=== PATIENT | female | born 1985 | race Caucasian/White ===

== ENCOUNTER 2018-01-26 04:36 | Inpatient (IN) | payer MEDICAID ==
[~2018-01-26] VITALS: Ht 160 cm; Wt 74.6 kg
[2018-01-26 04:40] VITALS: Ht 160 cm; Wt 74.6 kg
[2018-01-26 07:01] LABS: CALCIUM 8.3 mg/dL (8.5-10.1); CARBON DIOXIDE 23.8 mmol/L (21-32); CHLORIDE SERUM 112 mmol/L (98-107); CREATININE SERUM 0.7 mg/dL (0.6-1.0); GFR1 > 60 mL/min; GLUCOSE SERUM 123 mg/dL (74-106); SODIUM SERUM 145 mmol/L (136-145)
[2018-01-26 07:03] LABS: BASOPHIL % 0.2 % (0-2); PLATELET COUNT 266 x10^3mcL (130-400); RED CELL DISTRIBUTION WIDTH 12.8 % (11.5-14.5)
[2018-01-26 07:09] LABS: ALBUMIN 3.4 g/dL (3.4-5.0); ALKALINE PHOSPHATASE 69 U/L (46-116); ALT/SGPT 25 U/L (14-59); AST/SGOT 15 U/L (15-37); BILIRUBIN TOTAL 0.26 mg/dL (0.20-1.00); FREE T4 1.16 ng/dL (0.76-1.46); TOTAL PROTEIN, SERUM 7.3 g/dL (6.4-8.2)
[2018-01-26 07:34] LABS: UA SPECIFIC GRAVITY 1.025 (1.005-1.035); microscopic required? YES; urine erythrocyte 1+ (NEGATIVE)
[2018-01-26 09:17] VITALS: BP 96/61
[2018-01-26 09:25] VITALS: BP 96/61
[2018-01-26 12:39] VITALS: BP 102/58
[2018-01-26 13:40] LABS: AMPHETAMINE QUAL UR NONE DETECTED (NEG <=1000)
[2018-01-26 14:01] LABS: MAGNESIUM 2.1 mg/dL (1.8-2.4); PHOSPHOROUS 2.7 mg/dL (2.5-4.9)
[2018-01-26 17:07] VITALS: BP 104/64
[2018-01-26 20:56] VITALS: BP 99/52
[2018-01-27 05:46] VITALS: BP 99/47
[2018-01-27 07:47] LABS: CALCIUM 8.4 mg/dL (8.5-10.1); CARBON DIOXIDE 23.8 mmol/L (21-32); CHLORIDE SERUM 112 mmol/L (98-107); CREATININE SERUM 0.6 mg/dL (0.6-1.0); GFR1 > 60 mL/min; GLUCOSE SERUM 102 mg/dL (74-106); PHOSPHOROUS 3.4 mg/dL (2.5-4.9); POTASSIUM SERUM 4.3 mmol/L (3.5-5.1); SODIUM SERUM 145 mmol/L (136-145)
[2018-01-27 08:08] LABS: BASOPHIL % 0.3 % (0-2); PLATELET COUNT 249 x10^3mcL (130-400)
[2018-01-27 10:10] VITALS: BP 103/66
[2018-01-27] MEDS ORDERED: AMITRIPTYLINE H10 MG PO (13:10)
[2018-01-27] MEDS ORDERED: MAC100 PO (13:40)
[2018-01-27 13:57] VITALS: BP 100/55
[2018-01-27] MEDS ORDERED: BD LACTINEX1.4 MG PO (14:04)
[2018-01-27 14:35] VITALS: BP 100/55
== END 2018-01-27 15:04 | disposition home or self-care (01) | DRG 48 ==
LOC: ED 04:36 → DU 07:42
PROVIDERS: Emergency Medicine; Student in an Organized Health Care Education/Training Program
DX: G90.8 Other disorders of autonomic nervous system (principal); E87.8 Other disorders of electrolyte and fluid balance, not elsewhere classified; G43.909 Migraine, unspecified, not intractable, without status migrainosus; N39.0 Urinary tract infection, site not specified; Z83.3 Family history of diabetes mellitus; E78.5 Hyperlipidemia, unspecified
CPT/HCPCS: 83880; 84439; J0696; J1885; J2270; J2765; J7030; Q0092

== ENCOUNTER 2018-08-28 21:54 | Emergency (ER) | payer SELFPAY ==
[~2018-08-28] VITALS: Ht 160 cm; Wt 76.2 kg
[~2018-08-28 21:54] MED LIST: AMITRIPTYLINE H10 MG PO; BD LACTINEX1.4 MG PO; MAC100 PO
[2018-08-28 21:58] VITALS: Ht 160 cm; Wt 76.2 kg
[2018-08-28 23:05] LABS: CALCIUM 8.7 mg/dL (8.5-10.1); CARBON DIOXIDE 27.1 mmol/L (21-32); CHLORIDE SERUM 105 mmol/L (98-107); CREATININE SERUM 0.7 mg/dL (0.6-1.0); GFR1 > 60 mL/min; GLUCOSE SERUM 121 mg/dL (74-106); POTASSIUM SERUM 3.9 mmol/L (3.5-5.1); SODIUM SERUM 137 mmol/L (136-145)
[2018-08-28 23:10] LABS: ALBUMIN 3.7 g/dL (3.4-5.0); ALKALINE PHOSPHATASE 85 U/L (46-116); ALT/SGPT 28 U/L (14-59); AST/SGOT 17 U/L (15-37); BILIRUBIN TOTAL 0.4 mg/dL (0.20-1.00); TOTAL PROTEIN, SERUM 7.8 g/dL (6.4-8.2)
[2018-08-28 23:22] LABS: BASOPHIL % 0.6 % (0-2); PLATELET COUNT 300 x10^3mcL (130-400); RED CELL DISTRIBUTION WIDTH 13.9 % (11.5-14.5)
[2018-08-29 00:27] VITALS: BP 101/64
== END 2018-08-29 00:28 | disposition home or self-care (01) ==
LOC: ED 21:54
PROVIDERS: Emergency Medicine
DX: M79.18 Myalgia, other site (principal); N39.0 Urinary tract infection, site not specified; G43.909 Migraine, unspecified, not intractable, without status migrainosus
CPT/HCPCS: J1885; Q0162

== ENCOUNTER 2020-09-08 23:48 | Emergency (ER) | payer MEDICAID ==
[~2020-09-08] VITALS: Ht 160 cm; Wt 76.5 kg
[2020-09-09 01:40] LABS: CALCIUM 8.6 mg/dL (8.5-10.1); CARBON DIOXIDE 27.4 mmol/L (21-32); CHLORIDE SERUM 102 mmol/L (98-107); CREATININE SERUM 0.8 mg/dL (0.6-1.0); GFR1 > 60 mL/min; GLUCOSE SERUM 123 mg/dL (74-106); POTASSIUM SERUM 4.2 mmol/L (3.5-5.1); SODIUM SERUM 135 mmol/L (136-145)
[2020-09-09 01:53] LABS: ALBUMIN 3.5 g/dL (3.4-5.0); ALKALINE PHOSPHATASE 94 U/L (46-116); ALT/SGPT 23 U/L (14-59); AST/SGOT 12 U/L (15-37); BILIRUBIN TOTAL 0.19 mg/dL (0.20-1.00); T4(THYROXINE) 7.7 ug/dL (4.7-13.3); TOTAL PROTEIN, SERUM 7.4 g/dL (6.4-8.2)
[2020-09-09 02:11] LABS: BASOPHIL % 0.5 % (0-2); PLATELET COUNT 341 x10^3mcL (130-400); RED CELL DISTRIBUTION WIDTH 12.5 % (11.5-14.5)
[2020-09-09 02:28] VITALS: BP 118/76
== END 2020-09-09 02:28 | disposition home or self-care (01) ==
LOC: ED 23:48
PROVIDERS: Emergency Medicine
DX: H53.10 Unspecified subjective visual disturbances (principal); M62.830 Muscle spasm of back; E78.00 Pure hypercholesterolemia, unspecified